=== PATIENT | male | born 1980 | race Caucasian/White ===

== ENCOUNTER → 2020-03-26 | Outpatient (CLI) | payer OTHER ==
--- NOTE | 2020-03-26 14:59 | US ---
EXAM DESCRIPTION: Soft Tissue,Extremity: ULTRASOUND. CLINICAL HISTORY: 39 years Male TEAR OF DISTAL TENDON OF BICEPS BRACHII. Pulling on heavy object. COMPARISON: None Available. TECHNIQUE: Transcutaneous scanning: Guidry-scale and Doppler modes. FINDINGS: Scanning the region of interest medial right elbow. Normal appearance of the subcutaneous adipose tissue and muscle tissue. Normal vascularity. No dominant solid mass, no distinct cyst, no fluid collection. IMPRESSION: No abnormal ultrasound findings in the soft tissues of the medial right elbow. Electronically signed by: Antonio Rodrigez MD 03/26/2020 2:58 PM CDT
== END ==
LOC: US 13:44
PROVIDERS: ATTEND Nurse Practitioner Family
DX: S46.291A Other injury of muscle, fascia and tendon of other parts of biceps, right arm, initial encounter (principal)